=== PATIENT | male | born 1955 | race Caucasian/White ===

== ENCOUNTER 2019-07-11 11:50 | Outpatient (CLI) | payer MEDICARE, MEDICAID, SELFPAY ==
--- NOTE | 2019-07-11 11:29 | DI.RAD_ITS ---
EXAM: XR SHOULDER LT COMPLETE 2+V INDICATION: LEFT SHOULDER PAIN. COMPARISON: RIGHT SHOULDER COMPLETE from 03/09/2011 RIGHT SHOULDER COMPLETE from 02/25/2013 MR SHOULDER LT WO CONTRAST from 06/19/2019 TECHNIQUE: 2D digital imaging was performed. FINDINGS: There is normal alignment of the left shoulder. No fracture is identified. The soft tissues are unr emarkable. Acromion angles inferiorly and may compress the rotator cuff.. IMPRESSION:
== END 2019-07-11 12:10 ==
PROVIDERS: Visit Provider Student in an Organized Health Care Education/Training Program
DX: S46.012A Strain of muscle(s) and tendon(s) of the rotator cuff of left shoulder, initial encounter (principal); W00.0XXA Fall on same level due to ice and snow, initial encounter; M75.22 Bicipital tendinitis, left shoulder; M75.52 Bursitis of left shoulder; M75.42 Impingement syndrome of left shoulder; J44.9 Chronic obstructive pulmonary disease, unspecified; Z87.891 Personal history of nicotine dependence
CPT/HCPCS: 99215; 73030

== ENCOUNTER → 2019-07-31 14:25 | Outpatient (BNVA) | payer MEDICARE, MEDICAID, SELFPAY | PROVIDERS: PCP Family Medicine; Visit Provider Student in an Organized Health Care Education/Training Program | DX: S46.012A Strain of muscle(s) and tendon(s) of the rotator cuff of left shoulder, initial encounter (principal); W00.0XXA Fall on same level due to ice and snow, initial encounter; M75.22 Bicipital tendinitis, left shoulder; M75.52 Bursitis of left shoulder; M75.42 Impingement syndrome of left shoulder; J44.9 Chronic obstructive pulmonary disease, unspecified; Z87.891 Personal history of nicotine dependence | CPT/HCPCS: 99214 ==